=== PATIENT | male | born 1970 | race American Indian/Alaskan Native ===

== ENCOUNTER 2017-03-22 02:24 | Emergency (ER) | payer BC ==
[2017-03-22 02:41] VITALS: BP 139/77; PULSE 85; RESP 18; TEMP 98.4; O2SAT 99
--- NOTE | 2017-03-22 02:43 | ED PDOC ---
HPI: CCC, URI, Sore Throat Time Seen by Provider: 03/22/17 02:29 Chief Complaint (Nursing): ENT Problem History Per: Patient Additional Complaint(s): Pt. states Since Wednesday he's had a sore throat and for the past 2 days he's had a cough productive of yellow sputum. Today he developed R eye redness and discharge. Denies fever, hemoptysis, chest pain, SOB, sick contacts, recent travel, contact lens use. Past Medical History Reviewed: Historical Data, Nursing Documentation, Vital Signs Vital Signs: Last Vital Signs Temp 98.4 F 03/22/17 02:38 Pulse 85 03/22/17 02:38 Resp 18 03/22/17 02:38 BP 139/77 03/22/17 02:38 Pulse Ox 99 03/22/17 02:44 - Medical History PMH: Anxiety, Pneumonia Denies: Chronic Kidney Disease - Surgical History Surgical History: Tonsillectomy - Family History Family History: States: Unknown Family Hx - Home Medications Home Medications: Ambulatory Orders Medication Instructions Recorded Ondansetron HCl [Zofran] 4 mg PO Q6 PRN #5 tab 04/26/16 Benzonatate [Tessalon Perle] 100 mg PO Q8 PRN #30 capsule 03/22/17 Erythromycin 0.5% [Erythromycin 1 appl RIGHTEYE Q6 #1 tube 03/22/17 0.5% Oint] - Allergies Allergies/Adverse Reactions: Allergies Allergy/AdvReac Type Severity Reaction Status Date / Time No Known Allergies Allergy Verified 03/22/17 02:37 Review of Systems ROS Statement: Except As Marked, All Systems Reviewed And Found Negative Respiratory: Positive for: Cough Physical Exam - Physical Exam Appears: Positive for: Well, Non-toxic, No Acute Distress Skin: Positive for: Normal Color, Warm. Negative for: Rash Eye Exam: Positive for: EOMI (without pain), PERRL, Conjunctival injection (R eye with yellow discharge noted). Negative for: Periorbital swelling, Periorbital tenderness, Scleral icterus ENT: Positive for: Normal ENT Inspection. Negative for: Pharyngeal Erythema, Tonsillar Exudate, Tonsillar Swelling Neck: Positive for: Normal, Painless ROM Cardiovascular/Chest: Positive for: Regular Rate, Rhythm Respiratory: Positive for: CNT, Normal Breath Sounds Gastrointestinal/Abdominal: Positive for: Normal Exam, Soft. Negative for: Tenderness, Organomegaly Back: Positive for: Normal Inspection - ECG O2 Sat by Pulse Oximetry: 99 - Progress ED Course And Treament: Rapid strep: negative. Disposition - Clinical Impression Clinical Impression: URI (upper respiratory infection), Conjunctivitis - Patient ED Disposition Is Patient to be Admitted: No - Disposition Referrals: [facility] [Outside] Disposition: Routine/Home Disposition Time: 03:16 Condition: STABLE Prescriptions: Benzonatate [Tessalon Perle] 100 mg PO Q8 PRN #30 capsule PRN Reason: Cough Erythromycin 0.5% [Erythromycin 0.5% Oint] 1 appl RIGHTEYE Q6 #1 tube Instructions: Upper Respiratory Infection (ED), Conjunctivitis (ED) Forms: [facility] ED School/Work Excuse Print Language: BAHRAINI
== END 2017-03-22 03:24 | disposition home or self-care (01) ==
LOC: H.ER 02:24
DX: J06.9 Acute upper respiratory infection, unspecified (principal); H10.9 Unspecified conjunctivitis; F41.9 Anxiety disorder, unspecified

== ENCOUNTER 2017-12-20 18:13 | Emergency (ER) | payer BC ==
[2017-12-20 18:27] VITALS: BP 152/86; PULSE 96; RESP 16; TEMP 98.7; O2SAT 100
--- NOTE | 2017-12-20 18:49 | ED PDOC ---
HPI: Eye Injury/Pain Time Seen by Provider: 12/20/17 18:36 Chief Complaint (Nursing): Eye Problem Chief Complaint (Provider): eye pain History Per: Patient Additional Complaint(s): 47-year-old male presents to emergency department with foreign body sensation to left eye. Patient was at work when a piece of debris flew into his eye. Patient states every time he blinks he feels foreign body move around. He has excessive tearing and discomfort but denies vision loss or changes. PMD: none Past Medical History Reviewed: Historical Data, Nursing Documentation, Vital Signs Vital Signs: Last Vital Signs Temp 98.7 F 12/20/17 18:25 Pulse 96 H 12/20/17 18:25 Resp 16 12/20/17 18:25 BP 152/86 H 12/20/17 18:25 Pulse Ox 100 12/20/17 18:25 - Medical History PMH: Anxiety - Surgical History Surgical History: Tonsillectomy - Family History Family History: States: No Known Family Hx - Living Arrangements Living Arrangements: With Family - Social History Current smoker - smoking cessation education provided: No Alcohol: None Drugs: Denies - Immunization History Hx Tetanus Toxoid Vaccination: Yes - Home Medications Home Medications: Ambulatory Orders Medication Instructions Recorded Ondansetron HCl [Zofran] 4 mg PO Q6 PRN #5 tab 04/26/16 Benzonatate [Tessalon Perle] 100 mg PO Q8 PRN #30 capsule 03/22/17 Erythromycin 0.5% [Erythromycin 1 appl RIGHTEYE Q6 #1 tube 03/22/17 0.5% Oint] Tobramycin [Tobrex] 5 ml TOP QID #1 bottle 12/20/17 - Allergies Allergies/Adverse Reactions: Allergies Allergy/AdvReac Type Severity Reaction Status Date / Time No Known Allergies Allergy Verified 03/22/17 02:37 Review of Systems ROS Statement: Except As Marked, All Systems Reviewed And Found Negative Eyes: Positive for: Other (FB sensation left eye) Neurological: Negative for: Headache, Dizziness Physical Exam - Reviewed Nursing Documentation Reviewed: Yes Vital Signs Reviewed: Yes - Physical Exam Appears: Positive for: Well, Non-toxic, No Acute Distress Skin: Negative for: Rash Eye Exam: Positive for: Other (Moderate conjunctival injection noted to left eye , tearing is noted with no purulent discharge, no visualized foreign body noted , no hyphema or globe rupture) ENT: Positive for: Normal ENT Inspection Neurologic/Psych: Positive for: Alert, Oriented - ECG O2 Sat by Pulse Oximetry: 100 Pulse Ox Interpretation: Normal Medical Decision Making Medical Decision Makin47 year old with FB to left eye Procedure Note: 2 drops tetracaine applied to left eye followed by stain with fluorescein strip. Examination under UV light reveals corneal abrasion at 12:00 , there is a small piece of debris noted to upper eyelid, easily removed with cotton swab tip. After removal patient states eye feels much better. Procedure tolerated well by patient with no acute complications. Patient given prescription for tobramycin ophthalmic drop. Advised ophthalmology follow-up in 2-3 days. Disposition - Clinical Impression Clinical Impression: Foreign body in eye, Corneal abrasion - Patient ED Disposition Is Patient to be Admitted: No Counseled Patient/Family Regarding: Diagnosis, Need For Followup, Rx Given - Disposition Referrals: Jamie Lovett MD [Staff Provider] - Disposition: Routine/Home Disposition Time: 19:35 Condition: IMPROVED Additional Instructions: Apply drops as directed. Motrin for pain as needed. Follow up with eye doctor in 1-2 days. Prescriptions: Tobramycin [Tobrex] 5 ml TOP QID #1 bottle Instructions: Corneal Abrasion, Foreign Body in Eye (DC) Forms: [facility] (Bulgarian)
== END 2017-12-20 20:20 | disposition home or self-care (01) ==
LOC: H.ER 18:13
DX: T15.02XA Foreign body in cornea, left eye, initial encounter (principal); X58.XXXA Exposure to other specified factors, initial encounter; Y92.9 Unspecified place or not applicable

== ENCOUNTER 2018-05-28 00:53 | Observation (INO) | payer BC ==
[2018-05-28 00:56] VITALS: BMI 30.2
--- NOTE | 2018-05-28 02:13 | ED PDOC ---
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 Patient states symptoms occurred after he took some cocaine and was having intercourse with partner. Patient reports currently feeling anxious but states he no longer has chest discomfort but still has tightness. He denies any dizziness, headache, shortness of breath, palpitations, nausea or vomit. No further medical complaints. Patient further states he does use cocaine occasionally, last time was x2 weeks ago. PMD: None provided. Past Medical History Reviewed: Historical Data, Nursing Documentation, Vital Signs Vital Signs: Last Vital Signs Temp 99.8 F H 05/28/18 01:05 Pulse 87 05/28/18 04:23 Resp 16 05/28/18 04:23 BP 125/76 05/28/18 04:23 Pulse Ox 98 05/28/18 04:40 - Medical History PMH: Anxiety, Pneumonia Denies: Chronic Kidney Disease - Surgical History Surgical History: Tonsillectomy - Family History Family History: States: Other Other Family History: cancer - Social History Drugs: Cocaine - Immunization History Hx Tetanus Toxoid Vaccination: Yes - Home Medications Home Medications: Ambulatory Orders Medication Instructions Recorded No Known Home Med 05/28/18 - Allergies Allergies/Adverse Reactions: Allergies Allergy/AdvReac Type Severity Reaction Status Date / Time No Known Allergies Allergy Verified 05/28/18 05:01 Review of Systems ROS Statement: Except As Marked, All Systems Reviewed And Found Negative Cardiovascular: Positive for: Chest Pain (tightness). Negative for: Palpitations Respiratory: Negative for: Shortness of Breath Gastrointestinal: Negative for: Nausea, Vomiting Neurological: Negative for: Headache, Dizziness Psych: Positive for: Anxiety Physical Exam - Reviewed Nursing Documentation Reviewed: Yes Vital Signs Reviewed: Yes - Physical Exam Comments: GENERAL APPEARANCE: Patient is awake, alert, oriented x 3, in mild acute distress. Appears anxious SKIN: Warm, dry; (-) cyanosis HEAD: (-) scalp swelling, (-) scalp tenderness. EYES: (-) conjunctival pallor, (-) scleral icterus, (-) nystagmus. ENMT: Mucous membranes moist. Airway patent: (-) stridor. NECK: (-) tenderness, (-) stiffness, (-) lymphadenopathy. HEART AND CARDIOVASCULAR: (-) irregularity; (-) murmur, (-) gallop, (+) Tachycardia CHEST AND RESPIRATORY: (-) rales, (-) rhonchi, (-) wheezes; breath sounds equal. ABDOMEN: Soft, (-) distention, (-) tenderness, (-) guarding. NEURO AND PSYCH: Mental status as above. 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 Pupils equal and reactive; EOMI; (-) facial asymmetry ; tongue and uvula midline. Strength and DTRs symmetric. - Laboratory Results Result Diagrams: 05/28/18 02:14 05/28/18 02:14 - ECG O2 Sat by Pulse Oximetry: 98 (RA) Pulse Ox Interpretation: Normal Medical Decision Making Medical Decision Making: Time: 01:05 Initial Impression: substance abuse Initial Plan: --EKG --CMP --Drug screen, urine --Troponin I --CBC w/ differential --Chest one view [RAD] --Aspirin 325 mg PO --Ativan 1 mg IVP --Reevaluation CXR : NAD, as read by JACQUES EKG : ST at 148 bpm, no acute ST changes, as read by JACQUES Labs reviewed : trop (-) On re-evaluation, patient reports improvement of symptoms, denies any CP or SOB. On exam, patient remains AAOx3, in no acute distress. HR still in the low 100s on the rn home care. Diagnostic results d/w the patient in great detail. Based on history, exam and diagnostic results, plan will be for observation. Case d/w Dr. Tucker, agrees with plan ofr further observation. Patient states he fully agrees with and understands further plan and disposition. I have given the patient opportunity to ask any additional questions. ----- Scribe Attestation: Documented by Leonides Rahman, acting as a scribe for Anushka Edwards PA-C. Provider Scribe Attestation: All medical record entries made by the Scribe were at my direction and personally dictated by me. I have reviewed the chart and agree that the record accurately reflects my personal performance of the history, physical exam, medical decision making, and the department course for this patient. I have also personally directed, reviewed, and agree with the discharge instructions and disposition. 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
[2018-05-28 02:16] LABS: BASO % 0.4 % (0.0-2.0); EOS % 0.3 % (0.0-4.0); LYMPH # 0.8 K/uL (1.0-4.3); LYMPH % 9.8 % (20.0-40.0); MEAN CELL VOLUME 84.2 fl (80.0-94.0); MEAN CORPUSCULAR HEMOGLOBIN 28.5 pg (27.0-31.0); MEAN CORPUSCULAR HGB CONC 33.9 g/dL (33.0-37.0); MEAN PLATELET VOLUME 8.3 fl (7.2-11.7); MONO # 0.6 K/uL (0.0-0.8); MONO % 7.9 % (0.0-10.0); NEUT # 6.5 K/uL (1.8-7.0); NEUT % 81.6 % (50.0-75.0); NRBC % 0.1 % (0.0-0.0); PLATELET COUNT 197 K/uL (130-400); RBC 5.26 Mil/uL (4.40-5.90); RED CELL DISTRIBUTION WIDTH 15.8 % (11.5-14.5)
[2018-05-28 02:28] LABS: ALB/GLOB RATIO 1.4 (1.0-2.1); ALBUMIN 4.3 g/dL (3.5-5.0); ALT/SGPT 28 U/L (21-72); AST/SGOT 26 U/L (17-59); BLOOD UREA NITROGEN 12 mg/dl (9-20); GFR AFRICAN-AMERICAN > 60; GFR NON-AFRICAN AMERICAN 59
[2018-05-28 04:21] LABS: LYMPHOCYTE 11 % (20-50); MONOCYTE 3 % (0-10); NEUTROPHIL 82 % (42-75); REACTIVE LYMPHOCYTES 4 % (0-0); TOTAL CELLS COUNTED 100
[2018-05-28 04:22] LABS: ANISOCYTOSIS SLIGHT; HYPOCHROMIC SLIGHT; LARGE PLATELETS PRESENT; PLATELET ESTIMATE NORMAL (NORMAL); TEARDROP CELLS SLIGHT
--- NOTE | 2018-05-28 10:00 | RAD ---
Date of service: 05/28/2018 PROCEDURE: CHEST RADIOGRAPH, 1 VIEW HISTORY: chest discomfort COMPARISON: None available. FINDINGS: LUNGS: Clear. PLEURA: No pneumothorax or pleural fluid seen. CARDIOVASCULAR: Cardiomediastinal silhouette within normal limits with nonspecific right hilar prominence. OSSEOUS STRUCTURES: No significant abnormalities. VISUALIZED UPPER ABDOMEN: Normal. OTHER FINDINGS: None. IMPRESSION: No focal consolidation or pleural effusion. Nonspecific right hilar prominence.
[2018-05-28 10:07] LABS: BARBITURATES, UR NEGATIVE (NEGATIVE); BENZODIAZEPINES, UR NEGATIVE (NEGATIVE); OPIATES, UR NEGATIVE (NEGATIVE); PHENCYCLIDINE, UR NEGATIVE (NEGATIVE)
[2018-05-28 12:41] VITALS: RESP 18
[2018-05-28] MEDS ORDERED: Pneumococcal 23-Valent Vaccine IM ONE (14:33)
[2018-05-28 16:08] VITALS: BP 128/77; TEMP 98; O2SAT 95
[2018-05-28 21:17] VITALS: PULSE 76
--- NOTE | 2018-05-28 21:25 | CARD ---
APPROVED REPORT Date of service: 05/28/2018 EXAM: Two-dimensional and M-mode echocardiogram with Doppler and color Doppler. Other Information Quality : GoodRhythm : NSR INDICATION Chest Pain 2D DIMENSIONS IVSd1.10 (0.7-1.1cm)LVDd5.60 (3.9-5.9cm) LVOT Diameter2.51 (1.8-2.4cm)PWd1.10 (0.7-1.1cm) IVSs1.74 (0.8-1.2cm)LVDs3.54 (2.5-4.0cm) FS (%) 36.8 %PWs1.32 (0.8-1.2cm) M-Mode DIMENSIONS Left Atrium (MM)3.12 (2.5-4.0cm)IVSd0.91 (0.7-1.1cm) Aortic Root3.85 (2.2-3.7cm)LVDd5.79 (4.0-5.6cm) Aortic Cusp Exc.2.44 (1.5-2.0cm)PWd1.26 (0.7-1.1cm) IVSs1.68 cmFS (%) 40 % LVDs3.50 (2.0-3.8cm)PWs1.85 cm Aortic Valve AoV Peak Vldvulqp924.5cm/sAoV VTI30.7cmAO Peak GR.12mmHg LVOT Peak Xwmhnjwl820.0cm/sLVOT VTI20.79cmAO Mean GR.7mmHg Mitral Valve MV E Nuzllpdd16.0cm/sMV DECEL FMYR339vkYP A Ffwjpnqz84.5cm/s MV RBB17qhU/A ratio1.4MVA (PHT)2.69cm2 TDI Lateral E' Peak V15.07cm/sMedial E' Peak V10.92cm/sE/Lateral E'5.9 E/Medial E'8.2 Pulmonary Valve PV Peak Ueabmspi829.0cm/s LEFT VENTRICLE The left ventricle is normal size. There is normal left ventricular wall thickness. The left ventricular ejection fraction is within the normal range. The Ejection Fraction is 55%. No regional wall motion abnormalities noted.. The left ventricular diastolic function is normal. No left ventricle thrombus noted on this study. There is no ventricular septal defect visualized. There is no mass noted in the left ventricle. RIGHT VENTRICLE The right ventricle is normal size. There is normal right ventricular wall thickness. The right ventricular systolic function is normal. ATRIA The left atrium size is normal. The right atrium size is normal. The interatrial septum is intact with no evidence for an atrial septal defect. AORTIC VALVE The aortic valve is normal in structure. No aortic regurgitation is present. There is no aortic valvular stenosis. MITRAL VALVE The mitral valve is normal in structure. There is no mitral valve stenosis. There is trivial mitral valve regurgitation noted. TRICUSPID VALVE The tricuspid valve is normal in structure. There is no tricuspid valve regurgitation noted. PULMONIC VALVE The pulmonary valve is normal in structure. There is mild pulmonic valvular regurgitation. GREAT VESSELS The aortic root is mildly dilated The ascending aorta is normal in size. The pulmonary artery is normal. The IVC is normal in size and collapses >50% with inspiration. PERICARDIAL EFFUSION There is no pericardial effusion. <Conclusion> The aortic root is mildly dilated Mild pulmonic insufficiency Normal LV function The Ejection Fraction is 55%.
--- NOTE | 2018-05-29 03:53 | CP.PCM.HP ---
History of Present Illness - History of Present Illness History of Present Illness: CC: Chest Pain History of Present Illness: A 47 year old male, with no significant past medical history, who presents to the emergency department complaining of a chest discomfort and tightness going to left arm after taking some cocaine at home prior to arrival. Patient states symptoms occurred after he took some cocaine and was having intercourse with partner. Patient reports currently feeling anxious but states he no longer has chest discomfort but still has tightness. He denies any dizziness, headache, shortness of breath, palpitations, nausea or vomit. No further medical complaints. Patient further states he does use cocaine occasionally, last time was x2 weeks ago. Present on Admission - Present on Admission Any Indicators Present on Admission: No Review of Systems - Review of Systems All systems: reviewed and no additional remarkable complaints except Review of Systems: as per HPI Past Patient History - Past Medical History & Family History Past Medical History?: Yes Past Family History: Reviewed and not pertinent - Past Social History Smoking Status: Current Some Days Smoker Alcohol: Social Drugs: Cocaine - CARDIAC Hx Cardiac Disorders: No - PULMONARY Hx Pneumonia: Yes - NEUROLOGICAL Hx Neurological Disorder: No - HEENT Other/Comment: Seasonal Allergies - RENAL Hx Chronic Kidney Disease: No - ENDOCRINE/METABOLIC Hx Endocrine Disorders: No - HEMATOLOGICAL/ONCOLOGICAL Hx Blood Disorders: No Hx AIDS: No Hx Human Immunodeficiency Virus (HIV): No - INTEGUMENTARY Hx Dermatological Problems: No - MUSCULOSKELETAL/RHEUMATOLOGICAL Hx Musculoskeletal Disorders: No Hx Falls: No - GASTROINTESTINAL Hx Gastrointestinal Disorders: No - GENITOURINARY/GYNECOLOGICAL Hx Genitourinary Disorders: No - PSYCHIATRIC Hx Psychophysiologic Disorder: Yes (anxiety) Hx Anxiety: Yes Hx Substance Use: Yes - SURGICAL HISTORY Hx Tonsillectomy: Yes - ANESTHESIA Hx Anesthesia: Yes Hx Anesthesia Reactions: No Meds Home Medications: Home Medication List Medication Instructions Recorded Confirmed Type Aspirin [Aspirin Chewable] 81 mg PO DAILY #30 chew 05/28/18 Rx Allergies/Adverse Reactions: Allergies Allergy/AdvReac Type Severity Reaction Status Date / Time No Known Allergies Allergy Verified 05/28/18 05:01 Physical Exam - Constitutional Appears: Well, No Acute Distress - Head Exam Head Exam: ATRAUMATIC, NORMAL INSPECTION, NORMOCEPHALIC - Eye Exam Eye Exam: EOMI, Normal appearance, PERRL Pupil Exam: NORMAL ACCOMODATION, PERRL - ENT Exam ENT Exam: Mucous Membranes Moist, Normal Exam - Neck Exam Neck exam: Positive for: Full Rom, Normal Inspection - Respiratory Exam Respiratory Exam: Clear to Auscultation Bilateral, NORMAL BREATHING PATTERN - Cardiovascular Exam Cardiovascular Exam: REGULAR RHYTHM, +S1, +S2. absent: Systolic Murmur - GI/Abdominal Exam GI & Abdominal Exam: Firm, Normal Bowel Sounds, Soft. absent: Tenderness - Extremities Exam Extremities exam: Positive for: full ROM, normal capillary refill, normal inspection - Back Exam Back exam: FULL ROM, NORMAL INSPECTION. absent: CVA tenderness (L), CVA tenderness (R) - Neurological Exam Neurological exam: Alert, CN II-XII Intact, Normal Gait, Oriented x3, Reflexes Normal - Psychiatric Exam Psychiatric exam: Normal Affect, Normal Mood - Skin Skin Exam: Dry, Intact, Normal Color, Warm Results - Vital Signs Recent Vital Signs: Last Vital Signs Temp 98.0 F 05/28/18 16:07 Pulse 76 05/28/18 21:00 Resp 18 05/28/18 16:07 BP 128/77 05/28/18 16:07 Pulse Ox 95 05/28/18 16:07 - Labs Result Diagrams: 05/28/18 02:14 05/28/18 02:14 Labs: Laboratory Results - last 24 hr 05/28/18 05/28/18 05/28/18 02:14 09:42 09:42 Neutrophils % (Manual) 82 H Lymphocytes % (Manual) 11 L Reactive Lymphs % 4 H Monocytes % (Manual) 3 Platelet Estimate Normal Large Platelets Present Hypochromasia (manual) Slight Anisocytosis (manual) Slight Tear Drop Cells Slight Troponin I < 0.0120 Urine Opiates Screen Negative Urine Methadone Screen Negative Ur Barbiturates Screen Negative Ur Phencyclidine Scrn Negative Ur Amphetamines Screen Negative U Benzodiazepines Scrn Negative U Oth Cocaine Metabols Positive H U Cannabinoids Screen Negative 05/28/18 18:12 Neutrophils % (Manual) Lymphocytes % (Manual) Reactive Lymphs % Monocytes % (Manual) Platelet Estimate Large Platelets Hypochromasia (manual) Anisocytosis (manual) Tear Drop Cells Troponin I < 0.0120 Urine Opiates Screen Urine Methadone Screen Ur Barbiturates Screen Ur Phencyclidine Scrn Ur Amphetamines Screen U Benzodiazepines Scrn U Oth Cocaine Metabols U Cannabinoids Screen - Imaging and Cardiology Chest x-ray Status: Report reviewed by me Additional comment: CHEST RADIOGRAPH, 1 VIEW HISTORY: chest discomfort COMPARISON: None available. FINDINGS: LUNGS: Clear. PLEURA: No pneumothorax or pleural fluid seen. CARDIOVASCULAR: Cardiomediastinal silhouette within normal limits with nonspecific right hilar prominence. OSSEOUS STRUCTURES: No significant abnormalities. VISUALIZED UPPER ABDOMEN: Normal. OTHER FINDINGS: None. IMPRESSION: No focal consolidation or pleural effusion. Nonspecific right hilar prominence. Assessment & Plan (1) Chest pain Assessment and Plan: R/O ACS; Cocaine induced Vasospasm Serial Trop and EKG Echocardiogram ASA Status: Acute (2) Cocaine use Assessment and Plan: Counselled to Quit Smoking, ETOH use and Drug Use. Status: Acute Priority: Medium
--- NOTE | 2018-05-29 04:08 | CP.PCM.DIS ---
Provider - Provider Date of Admission: 05/28/18 04:36 Attending physician: Ginger Tucker MD Time Spent in preparation of Discharge (in minutes): 25 Diagnosis - Discharge Diagnosis (1) Chest pain Status: Acute Comment: ACS Ruled Out. Underlying Stable angina Cannot be ruled out (2) Cocaine use Status: Acute Priority: Medium Hospital Course - Lab Results Lab Results: Most Recent Lab Values WBC 8.0 K/uL (4.8-10.8) 05/28/18 02:14 RBC 5.26 Mil/uL (4.40-5.90) 05/28/18 02:14 Hgb 15.0 g/dL (12.0-18.0) 05/28/18 02:14 Hct 44.3 % (35.0-51.0) 05/28/18 02:14 MCV 84.2 fl (80.0-94.0) 05/28/18 02:14 MCH 28.5 pg (27.0-31.0) 05/28/18 02:14 MCHC 33.9 g/dL (33.0-37.0) 05/28/18 02:14 RDW 15.8 % (11.5-14.5) H 05/28/18 02:14 Plt Count 197 K/uL (130-400) 05/28/18 02:14 MPV 8.3 fl (7.2-11.7) 05/28/18 02:14 Neut % (Auto) 81.6 % (50.0-75.0) H 05/28/18 02:14 Lymph % (Auto) 9.8 % (20.0-40.0) L 05/28/18 02:14 [place] % (Auto) 7.9 % (0.0-10.0) 05/28/18 02:14 Eos % (Auto) 0.3 % (0.0-4.0) 05/28/18 02:14 Baso % (Auto) 0.4 % (0.0-2.0) 05/28/18 02:14 Neut # (Auto) 6.5 K/uL (1.8-7.0) 05/28/18 02:14 Lymph # (Auto) 0.8 K/uL (1.0-4.3) L 05/28/18 02:14 [place] # (Auto) 0.6 K/uL (0.0-0.8) 05/28/18 02:14 Eos # (Auto) 0.0 K/uL (0.0-0.7) 05/28/18 02:14 Baso # (Auto) 0.0 K/uL (0.0-0.2) 05/28/18 02:14 Neutrophils % (Manual) 82 % (42-75) H 05/28/18 02:14 Lymphocytes % (Manual) 11 % (20-50) L 05/28/18 02:14 Reactive Lymphs % 4 % (0-0) H 05/28/18 02:14 Monocytes % (Manual) 3 % (0-10) 05/28/18 02:14 Platelet Estimate Normal (NORMAL) 05/28/18 02:14 Large Platelets Present 05/28/18 02:14 Hypochromasia (manual) Slight 05/28/18 02:14 Anisocytosis (manual) Slight 05/28/18 02:14 Tear Drop Cells Slight 05/28/18 02:14 Sodium 138 mmol/l (132-148) 05/28/18 02:14 Potassium 4.3 MMOL/L (3.6-5.0) 05/28/18 02:14 Chloride 99 mmol/L (98-107) 05/28/18 02:14 Carbon Dioxide 24 mmol/L (22-30) 05/28/18 02:14 Anion Gap 19 (10-20) 05/28/18 02:14 BUN 12 mg/dl (9-20) 05/28/18 02:14 Creatinine 1.3 mg/dl (0.8-1.5) 05/28/18 02:14 Est GFR ( Amer) > 60 05/28/18 02:14 Est GFR (Non-Af Amer) 59 05/28/18 02:14 Random Glucose 83 mg/dL (75-110) 05/28/18 02:14 Calcium 9.0 mg/dL (8.4-10.2) 05/28/18 02:14 Total Bilirubin 0.9 mg/dl (0.2-1.3) 05/28/18 02:14 AST 26 U/L (17-59) 05/28/18 02:14 ALT 28 U/L (21-72) 05/28/18 02:14 Alkaline Phosphatase 55 U/L (38-126) 05/28/18 02:14 Troponin I < 0.0120 ng/mL (0.00-0.120) 05/28/18 18:12 Total Protein 7.4 G/DL (6.3-8.2) 05/28/18 02:14 Albumin 4.3 g/dL (3.5-5.0) 05/28/18 02:14 Globulin 3.1 gm/dL (2.2-3.9) 05/28/18 02:14 Albumin/Globulin Ratio 1.4 (1.0-2.1) 05/28/18 02:14 Urine Opiates Screen Negative (NEGATIVE) 05/28/18 09:42 Urine Methadone Screen Negative (NEGATIVE) 05/28/18 09:42 Ur Barbiturates Screen Negative (NEGATIVE) 05/28/18 09:42 Ur Phencyclidine Scrn Negative (NEGATIVE) 05/28/18 09:42 Ur Amphetamines Screen Negative (NEGATIVE) 05/28/18 09:42 U Benzodiazepines Scrn Negative (NEGATIVE) 05/28/18 09:42 U Oth Cocaine Metabols Positive (NEGATIVE) H 05/28/18 09:42 U Cannabinoids Screen Negative (NEGATIVE) 05/28/18 09:42 Discharge Exam - Head Exam Head Exam: ATRAUMATIC, NORMAL INSPECTION, NORMOCEPHALIC - Eye Exam Eye Exam: EOMI, Normal appearance, PERRL Pupil Exam: NORMAL ACCOMODATION, PERRL - Cardiovascular Exam Cardiovascular Exam: Bradycardia, +S1, +S2. absent: Diastolic murmur, Systolic Murmur - GI/Abdominal Exam GI & Abdominal Exam: Normal Bowel Sounds - Neurological Exam Neurological exam: Alert, CN II-XII Intact, Normal Gait, Oriented x3, Reflexes Normal - Psychiatric Exam Psychiatric exam: Normal Affect, Normal Mood - Skin Skin Exam: Dry, Intact, Normal Color, Warm - Additional Findings Additional findings: 2D Echocardiogram: Normal Study Discharge Plan - Discharge Medications Prescriptions: Aspirin [Aspirin Chewable] 81 mg PO DAILY #30 chew - Follow Up Plan Condition: FAIR Disposition: HOME/ ROUTINE Instructions: Chest Pain (DC), Drug Abuse and Drug Addiction (DC) Additional Instructions: Follow up Echo result either with your Primary Doctor or in Dr. Tucker's office on 06/03/18 or 06/04/18. Office number as follows : [phone]
--- NOTE | 2018-05-29 08:57 | CARD ---
APPROVED REPORT Date of service: 05/28/2018 EKG Measurement Heart [id number] [id number] <Conclusion> Sinus tachycardia abnormal ecg
--- NOTE | 2018-05-29 19:03 | CARD ---
APPROVED REPORT Date of service: 05/28/2018 EKG Measurement Heart [id number] AL [id number] <Conclusion> Normal sinus rhythm Normal ECG
== END 2018-05-28 20:30 | disposition home or self-care (01) ==
LOC: H.ER 00:53 → H.ERHOLD 04:36 → H.TEL 11:15
PROVIDERS: ADMIT Internal Medicine; ATTEND Internal Medicine
DX: R07.9 Chest pain, unspecified (principal); F14.90 Cocaine use, unspecified, uncomplicated; F41.9 Anxiety disorder, unspecified; Z23 Encounter for immunization; F17.200 Nicotine dependence, unspecified, uncomplicated
CPT/HCPCS: 71045; 80053; 84484; 85025; 90732; 93005; 93306; 96374; 99284; G0009; G0378; G0480; J2060

== ENCOUNTER 2019-03-08 06:49 | Emergency (ER) | payer BC ==
[2019-03-08 07:04] VITALS: BMI 29.2
[2019-03-08] MEDS ORDERED: Albuterol-Ipratrop 3 mg / 0.5 (3 ml) UD INH STA ×2 (07:06→10:24)
[2019-03-08 07:12] VITALS: O2SAT 99
--- NOTE | 2019-03-08 07:16 | ED PDOC ---
HPI: SOB/CHF/COPD Time Seen by Provider: 03/08/19 07:00 Chief Complaint (Nursing): Shortness Of Breath Chief Complaint (Provider): cough, SOB, chest discomfort History Per: Patient History/Exam Limitations: no limitations Onset/Duration Of Symptoms: Days (2-3) Current Symptoms Are (Timing): Still Present Initiating Event: Upper Respiratory Illness Quality: Tightness, Other ("discomfort") Exacerbating Factor(s): Coughing Severity: Moderate Associated Symptoms: Chest Pain, Heart Racing, Light-headedness. denies: Ankle/Leg Swelling Additional Complaint(s): 48yo male c/o cough, SOB, chest discomfort mostly when coughs, ongoing 2-3 days, states feels similar to when had pneumonia about 6 years ago. Associated w mild dizziness, Denies hemoptysis, syncope, leg pain/edema or fever. Denies smoking travel or sick contacts. Past Medical History Reviewed: Historical Data, Nursing Documentation, Vital Signs Vital Signs: Last Vital Signs Temp Pulse Resp 17 03/08/19 07:04 BP Pulse Ox 99 03/08/19 07:04 Primary Care Provider: FAMILY PROVIDER,NO - Medical History PMH: Anxiety, Pneumonia Denies: HIV, Chronic Kidney Disease Other PMH: ?sarcoid - Surgical History Surgical History: Tonsillectomy Other surgeries: testicular surgery - Family History Family History: States: Unknown Family Hx - Immunization History Hx Tetanus Toxoid Vaccination: Yes - Home Medications Home Medications: Ambulatory Orders Medication Instructions Recorded Aspirin [Aspirin Chewable] 81 mg PO DAILY #30 chew 05/28/18 Albuterol HFA [Ventolin HFA 90 1 - 2 puff IH Q4 PRN #1 inhaler 03/08/19 mcg/actuation (8 g)] Azithromycin [Zithromax] 250 mg PO DAILY #6 tab 03/08/19 Ibuprofen [Motrin Tab] 600 mg PO Q6 PRN #15 tab 03/08/19 Prednisone 50 mg PO DAILY #4 tab 03/08/19 - Allergies Allergies/Adverse Reactions: Allergies Allergy/AdvReac Type Severity Reaction Status Date / Time No Known Allergies Allergy Verified 03/08/19 07:01 Review of Systems ROS Statement: Except As Marked, All Systems Reviewed And Found Negative Constitutional: Negative for: Fever Cardiovascular: Positive for: Chest Pain, Palpitations, Light Headedness. Negative for: Orthopnea Respiratory: Positive for: Cough, Shortness of Breath Gastrointestinal: Negative for: Nausea, Abdominal Pain Genitourinary Male: Negative for: Dysuria Musculoskeletal: Negative for: Neck Pain, Back Pain Skin: Negative for: Rash Neurological: Negative for: Weakness, Numbness, Altered Mental Status Physical Exam - Reviewed Nursing Documentation Reviewed: Yes Vital Signs Reviewed: Yes - Physical Exam Appears: Positive for: Non-toxic, No Acute Distress Head Exam: Positive for: ATRAUMATIC, NORMAL INSPECTION, NORMOCEPHALIC Skin: Positive for: Normal Color, Warm, DRY Eye Exam: Positive for: EOMI, Normal appearance, PERRL ENT: Positive for: Normal ENT Inspection Neck: Positive for: Normal, Painless ROM Cardiovascular/Chest: Positive for: Regular Rate, Rhythm Respiratory: Negative for: Decreased Breath Sounds, Rhonchi, Respiratory Distress Pulses-Radial (L): 3+/4+ Pulses-Radial (R): 3+/4+ Gastrointestinal/Abdominal: Positive for: Normal Exam, Soft Back: Positive for: Normal Inspection Extremity: Positive for: Normal ROM Neurological/Psych: Positive for: Awake, Alert, Normal Tone, Oriented. Negative for: Motor/Sensory Deficits, Facial Droop - Laboratory Results Result Diagrams: 03/08/19 07:25 03/08/19 07:25 - ECG ECG: Positive for: Interpreted By Me ECG Rhythm: Positive for: Normal ST Segment, Sinus Tachycardia, Nonspecific Changes Rate: 113 O2 Sat by Pulse Oximetry: 99 Pulse Ox Interpretation: Normal Medical Decision Making Medical Decision Making: workup for dyspnea/cough w stated past history of pneumonia check ekg, labs, CXR, initiate solumedrol, toradol for costal pain and duoneb trial Accession No. : [id number] Patient Name / ID : CAREY CORTEZ / [id number] Exam Date : 03/08/2019 13:01:09 ( Approved ) Study Comment : Sex / Age : M / 48Y Creator : Vaughn Jara MD Dictator : Vaughn Jara MD Psychological Assistant : [employer] : Vaughn Jara MD Approver2 : Report Date : 03/08/2019 14:49:21 My Comment : Date of service: 03/08/2019 PROCEDURE: CT Chest without contrast HISTORY: Cough, shortness of breath, abnormal chest x-ray. COMPARISON: March 08, 2019. Two-view chest TECHNIQUE: Contiguous axial images were obtained through the chest without intravenous contrast enhancement. Sagittal and coronal reconstructions were performed. Radiation dose: Total exam DLP = 566.61 mGy-cm. This CT exam was performed using one or more of the following dose reduction techniques: Automated exposure control, adjustment of the mA and/or kV according to patient size, and/or use of iterative reconstruction technique. FINDINGS: LUNGS: Linear scarring/atelectasis both lower lobes. No suspicious pulmonary nodules, masses or infiltrates. MEDIASTINUM: Unremarkable thoracic aorta. No aneurysm. Normal sized heart. Main pulmonary artery unremarkable. No vascular congestion. No lymphadenopathy. No aortic atherosclerotic calcification. PLEURA: No pleural fluid. No pneumothorax. BONES: No fracture. No destructive lesion. UPPER ABDOMEN: Grossly unremarkable. OTHER FINDINGS: None. IMPRESSION: Linear atelectasis/scarring. This conforms to chest radiographic findings "bordering the anterior right 7th rib" Otherwise unremarkable examination. -------- reeval 4p improved lungs clear comfortable appearing and wants to go home, Rx azithromycin / prednisone and albuterol HFA, and followup pulmonary Disposition - Clinical Impression Clinical Impression: Bronchitis - Patient ED Disposition Is Patient to be Admitted: No Counseled Patient/Family Regarding: Studies Performed, Diagnosis, Need For Followup, Rx Given - Disposition Referrals: Isaak Rao MD [Staff Provider] - Disposition: Routine/Home Disposition Time: 16:00 Condition: STABLE Additional Instructions: Followup with PMD/pulmonary in 2-3 days. Return to ER for any worse or new symptoms Take medications as directed Prescriptions: Albuterol HFA [Ventolin HFA 90 mcg/actuation (8 g)] 1 - 2 puff IH Q4 PRN #1 inhaler PRN Reason: Shortness Of Breath Azithromycin [Zithromax] 250 mg PO DAILY #6 tab Ibuprofen [Motrin Tab] 600 mg PO Q6 PRN #15 tab PRN Reason: Pain, Moderate (4-7) Prednisone 50 mg PO DAILY #4 tab Instructions: Acute Bronchitis Forms: [facility] ([facility]), [facility] ED School/Work Excuse
[2019-03-08] MEDS ORDERED: Albuterol-Ipratrop 3 mg / 0.5 (3 ml) UD ONE ×2 (07:19→10:26)
[2019-03-08 07:47] LABS: BASO % 0.4 % (0.0-2.0); EOS # 0.1 K/uL (0.0-0.7); EOS % 2.7 % (0.0-4.0); HEMOGLOBIN 15.7 g/dL (12.0-18.0); LYMPH # 2.3 K/uL (1.0-4.3); LYMPH % 53.3 % (20.0-40.0); MEAN CELL VOLUME 85.9 fl (80.0-94.0); MEAN CORPUSCULAR HEMOGLOBIN 28.7 pg (27.0-31.0); MEAN CORPUSCULAR HGB CONC 33.4 g/dL (33.0-37.0); MEAN PLATELET VOLUME 9.1 fl (7.2-11.7); MONO # 0.8 K/uL (0.0-0.8); MONO % 18.3 % (0.0-10.0); NEUT # 1.1 K/uL (1.8-7.0); NEUT % 25.3 % (50.0-75.0); RBC 5.46 Mil/uL (4.40-5.90); WHITE BLOOD COUNT 4.3 K/uL (4.8-10.8)
[2019-03-08 07:50] LABS: PROTHROMBIN TIME 11.4 Seconds (9.8-13.1)
[2019-03-08 07:51] LABS: ALB/GLOB RATIO 1.2 (1.0-2.1); ALBUMIN 4.6 g/dL (3.5-5.0); BLOOD UREA NITROGEN 19 mg/dl (9-20); CALCIUM 8.9 mg/dL (8.4-10.2); GFR NON-AFRICAN AMERICAN 54
[2019-03-08 07:52] LABS: PARTIAL THROMBOPLASTIN TIME 33.7 Seconds (25.6-37.1)
[2019-03-08 08:03] LABS: B-TYPE NATRIURETIC PEPTIDE 12.4 pg/ml (0-900)
[2019-03-08 08:04] LABS: ALT/SGPT 29 U/L (21-72); AST/SGOT 34 U/L (17-59)
[2019-03-08 08:27] VITALS: RESP 18; TEMP 97.8
[2019-03-08 08:39] LABS: D DIMER < 200 ng/mlDDU (0-230)
--- NOTE | 2019-03-08 10:13 | RAD ---
Date of service: 03/08/2019 HISTORY: cough COMPARISON: May 28 2018 TECHNIQUE: Chest PA and lateral views FINDINGS: LUNGS: Bordering the anterior right 7th rib there is linear hyperdensity appreciated such on prior study mix are different however. There is amorphous slight hyperdensity along the inferior lateral left hemithorax not clearly identified as such on the prior study again techniques are difficult impeding optimal comparison. No CTs are available to assess if these may represent pleural calcifications. No consolidation noted. PLEURA: No significant pleural effusion identified. No pneumothorax apparent. Pleural calcifications-are a consideration. CARDIOVASCULAR: There is presence of aortic atherosclerotic calcification on x-ray. Normal cardiac size. No pulmonary vascular congestion. OSSEOUS STRUCTURES: Thoracic spondylosis. VISUALIZED UPPER ABDOMEN: Normal. OTHER FINDINGS: None. IMPRESSION: No interval consolidation. Possible inferolateral calcified pleural plaques-difficult to ascertain is present on the markedly different the technique of the prior exam. Consider follow-up noncontrast CT chest imaging.
--- NOTE | 2019-03-08 14:53 | CT ---
Date of service: 03/08/2019 PROCEDURE: CT Chest without contrast HISTORY: Cough, shortness of breath, abnormal chest x-ray. COMPARISON: March 08, 2019. Two-view chest TECHNIQUE: Contiguous axial images were obtained through the chest without intravenous contrast enhancement. Sagittal and coronal reconstructions were performed. Radiation dose: Total exam DLP = 566.61 mGy-cm. This CT exam was performed using one or more of the following dose reduction techniques: Automated exposure control, adjustment of the mA and/or kV according to patient size, and/or use of iterative reconstruction technique. FINDINGS: LUNGS: Linear scarring/atelectasis both lower lobes. No suspicious pulmonary nodules, masses or infiltrates. MEDIASTINUM: Unremarkable thoracic aorta. No aneurysm. Normal sized heart. Main pulmonary artery unremarkable. No vascular congestion. No lymphadenopathy. No aortic atherosclerotic calcification. PLEURA: No pleural fluid. No pneumothorax. BONES: No fracture. No destructive lesion. UPPER ABDOMEN: Grossly unremarkable. OTHER FINDINGS: None. IMPRESSION: Linear atelectasis/scarring. This conforms to chest radiographic findings "bordering the anterior right 7th rib" Otherwise unremarkable examination.
[2019-03-08 16:38] VITALS: PULSE 113
--- NOTE | 2019-03-08 17:53 | CARD ---
APPROVED REPORT Date of service: 03/08/2019 EKG Measurement Heart [id number] [place] 148P57 [id number] <Conclusion> Sinus tachycardia Otherwise normal ECG
[2019-03-08 18:09] VITALS: BP 122/81
== END 2019-03-08 16:35 | disposition home or self-care (01) ==
LOC: H.ER 06:49
DX: J40 Bronchitis, not specified as acute or chronic (principal); J44.9 Chronic obstructive pulmonary disease, unspecified; R07.89 Other chest pain; Z79.82 Long term (current) use of aspirin; Z79.899 Other long term (current) drug therapy
CPT/HCPCS: 71046; 71250; 80053; 83880; 84484; 85025; 85378; 85610; 85730; 93005; 96374; 96375; 99284; J1885; J2930